=== PATIENT | female | born 1980 | race Caucasian/White ===

== ENCOUNTER 2016-11-11 13:42 | Emergency (ER) | payer OTHER ==
--- NOTE | 2016-11-11 13:53 | ED.PDOC ---
History of Present Illness - General Chief Complaint: Abdominal Pain Stated Complaint: abdominal pain Time Seen by Provider: 11/11/16 13:52 Information Source: patient, RN notes reviewed Exam Limitations: no limitations - History of Present Illness Initial Comments: Ford Thomas 36 y/o female stated that she had onset of sharp stabbing right lower quadrant pain at about 0730h today which was getting more steady ate a little meal for breakfast got nauseated had bowel movement this am-normal, denies hematuria or dysuria. Abdominal Pain Onset Location: RLQ Pain Radiation: back Quality: sharpness, steady, stabbing Timing/Duration: 7-24 hours Improving Factors: nothing Worsening Factors: nothing Associated Symptoms: nausea/vomiting Review of Systems - Review of Systems Constitutional: States: no symptoms reported EENTM: States: no symptoms reported Respiratory: States: no symptoms reported Cardiology: States: no symptoms reported Gastrointestinal/Abdominal: States: see HPI Genitourinary: States: no symptoms reported Musculoskeletal: States: no symptoms reported Skin: States: no symptoms reported Neurological: States: no symptoms reported Endocrine: States: no symptoms reported Hematologic/Lymphatic: States: no symptoms reported Past Medical History (General) - Patient Medical History Hx Seizures: No Hx Asthma: No Hx Hypertension: No Hx 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[place] Surgical History: tonsillectomy, other - Hysterectomy - Social History Hx Tobacco Use: Yes - 1/2 ppd Years Tobacco Use: 20 Cigarettes Packs Per Day: 10 Family Medical History - Family History Sister Hx Family;Other: factor v deficiency Physical Exam - Physical Exam General Appearance: Alert, Comfortable, No apparent distress Eyes, Ears, Nose, Throat Exam: PERRL/EOMI, normal ENT inspection, TMs normal, pharynx normal Neck: non-tender, full range of motion, supple Respiratory: chest non-tender, lungs clear, normal breath sounds, no respiratory distress Cardiovascular/Chest: normal peripheral pulses, regular rate, rhythm, no edema, no gallop, no murmur Peripheral Pulses: No deficit Gastrointestinal/Abdominal: normal bowel sounds, soft, no organomegaly, tenderness - right lower quadrant no peritoneal signs Back Exam: normal inspection, no CVA tenderness, no vertebral tenderness Extremity: normal range of motion, non-tender, normal inspection Neurologic: no motor/sensory deficits, alert, oriented x 3 Skin Exam: normal color, warm/dry Lymphatic: no adenopathy Progress - Progress Progress: 11/11/16 16:03 Vital Signs - 8 hr 11/11/16 13:51 Temperature 97.3 F L Pulse Rate [ 84 Left Radial] - Results/Orders Results/Orders: 11/11/16 15:10 Hold Metformin x 48Hrs [id number] Laboratory Results - last 24 hr 11/11/16 11/11/16 11/11/16 14:07 14:07 14:55 WBC 9.8 RBC 4.85 Hgb 13.8 Hct 41.3 MCV 85.0 MCH 28.5 MCHC 33.5 RDW 14.2 Plt Count 239 MPV 7.7 Absolute Neuts (auto) 6.70 Absolute Lymphs (auto) 2.40 Absolute Monos (auto) 0.60 Absolute Eos (auto) 0.10 Absolute Basos (auto) 0.10 Neutrophils % 68.9 Lymphocytes % 24.1 Monocytes % 5.6 Eosinophils % 0.7 L Basophils % 0.7 Sodium 138 Potassium 4.2 Chloride 108 Carbon Dioxide 22 Anion Gap 12.2 BUN 15 Creatinine 0.80 BUN/Creatinine Ratio 18.8 Random Glucose 87 Serum Osmolality 275.9 Calcium 8.7 Total Bilirubin 0.5 AST 13 ALT 14 Alkaline Phosphatase 46 Serum Total Protein 6.0 L Albumin 3.7 Globulin 2.3 Albumin/Globulin Ratio 1.6 Urine Color Yellow Urine Appearance Clear Urine pH 5.5 Ur Specific [place] 1.020 Urine Protein Negative Urine Glucose (UA) Negative Urine Ketones Trace Urine Blood Negative Urine Nitrite Negative Urine Bilirubin Negative Urine Urobilinogen 0.2 Ur Leukocyte Esterase Negative Urine RBC 0-1 Urine WBC 0 Ur Epithelial Cells 1-3 Urine Bacteria Rare Urine Mucus Trace Departure - Departure Clinical Impression: Abdominal pain Qualifiers: Abdominal location: right lower quadrant Qualified Code(s): R10.31 - Right lower quadrant pain Time of Disposition: 16:05 Disposition: Discharge to Home or Self Care Condition: Fair Departure Forms: ED Discharge - Pt. Copy, Patient Portal Self Enrollment Instructions: DI for Abdominal Pain-Adult Diet: bland diet, other - Avoid greasy,spicy,dairy foods until better Prescriptions: Promethazine HCl 25 mg PO Q6HRS #10 tab Tramadol HCl 50 mg PO TID PRN #10 tab PRN Reason: Pain Home Medications: Ambulatory Orders Promethazine HCl 25 mg PO Q6HRS #10 tab 07/02/17 Tramadol HCl 50 mg PO TID PRN #10 tab 11/11/16
[2016-11-11] MEDS ORDERED: KETOROLAC TROMETHAMINE INJ 30 MG/ML VIAL IV ONE (13:54)
[2016-11-11] MEDS ORDERED: LACTATED RINGERS 1,000 ML IVS ONE (13:54)
[2016-11-11] MEDS ORDERED: ONDANSETRON INJ 4 MG/2 ML VIAL ONE (14:05)
[2016-11-11] MEDS ORDERED: ONDANSETRON INJ 4 MG/2 ML VIAL IV ONE (14:16)
[2016-11-11] MEDS ORDERED: MORPHINE SULFATE INJ 10 MG/ML VIAL IV ONE (14:24)
--- NOTE | 2016-11-11 15:50 | CT ---
PROCEDURE: Abdomen/Pelvis w/Contrast HISTORY: Abdominal pain Indication: Same as above Comparison: None . Technique: CT of the abdomen and pelvis was done with intravenous contrast. Images were obtained from the lung base to the level of the pubic symphysis in axial plane, followed by orthogonal sagittal and coronal reconstruction. Oral contrast was not given for the study. The patient was injected with contrast intravenously, without any documented immediate adverse reactions. This exam was performed according to our departmental dose-optimization program, which includes automated exposure control, adjustment of the mA and/or KV according to the patient's size and/or use of iterative reconstruction technique. FINDINGS: Images through the lung bases do not show any focal infiltrates or pleural effusions. The gallbladder, pancreas, spleen and the bilateral adrenal glands appear unremarkable. Note is made of few subcentimeter benign hemangiomas in the posterior segment of the right lobe of the liver The bilateral kidneys enhance with contrast in a normal fashion. Extrarenal pelvises are seen in the bilateral kidneys The urinary bladder is unremarkable . The bilateral ureters and the bilateral periureteral soft tissues and fat planes are unremarkable. The small bowel appears unremarkable, without any evidence of small bowel obstruction or bowel wall thickening. There is no CT evidence of pericecal inflammatory change or ileocecal mesenteric adenitis. The appendix is not visualized The ileocecal junction appears unremarkable. There is no CT evidence of acute colonic diverticulitis or colitis or large bowel obstruction. The splenic and portal veins are of normal caliber, without any filling defects. There is no pathological lymphadenopathy in the retroperitoneum or in the pelvic region. There is no evidence of free fluid or free air in the abdomen or the pelvic region. There is no clinically significant abdominal aortic aneurysm. There is no clinically significant inguinal or ventral hernia. Benign bilateral ovarian follicles are seen. The uterus appears to be surgically absent. The visualized lumbar spine is unremarkable . The paravertebral soft tissues are unremarkable. The remainder of the pelvic structures are unremarkable. IMPRESSION: There are no acute or significant findings on the current study. Location of Interpretation: [facility] Electronically signed by: Tyson Causey MD 11/11/2016 3:50 PM CDT Workstation: [employer]
[2016-11-11 16:30] VITALS: BP 117/78; TEMP 98.9; O2SAT 98
== END 2016-11-11 16:31 | disposition home or self-care (01) ==
LOC: ER 13:42
DX: R10.31 Right lower quadrant pain (principal); D68.2 Hereditary deficiency of other clotting factors; F17.200 Nicotine dependence, unspecified, uncomplicated; Z83.2 Family history of diseases of the blood and blood-forming organs and certain disorders involving the immune mechanism